=== PATIENT | female | born 1995 | race Caucasian/White ===

== ENCOUNTER 2016-11-11 20:30 | Inpatient (IN) | payer OTHER, MEDICAID ==
[2016-11-11 20:45] LABS: Hematocrit 41 % (35-47); Hemoglobin 13.7 g/dl (12.0-16.0); Mean Corpuscular HGB Conc 33 g/dl (31-36); Mean Corpuscular Hemoglobin 27 pg (27-31); Mean Corpuscular Volume 81 fL (80-97); Mean Platelet Volume 8 um3 (7.4-10.4); Red Blood Count 5.07 10^6/ul (4.0-5.4); Red Cell Distribution Width 13 % (10.5-15); White Blood Count 13.2 10^3/ul (3.5-10.8)
[2016-11-11 21:00] LABS: Urine Bacteria 2+ (Absent); Urine Bilirubin Negative (Negative); Urine Glucose Negative (Negative); Urine Nitrite Positive (Negative)
[2016-11-11 21:01] LABS: ALT 14 U/L (7-52); AST 15 U/L (13-39); Albumin 4.1 g/dL (3.2-5.2); Alkaline Phosphatase 52 U/L (34-104); Anion Gap 8 mmol/L (2-11); BUN/Creatinine Ratio 8.1 (8-20); Blood Urea Nitrogen 8 mg/dL (6-24); CO2 Carbon Dioxide 25 mmol/L (22-32); Calcium 9.6 mg/dL (8.6-10.3); Chloride 103 mmol/L (101-111); EGFR African American 90.2 (>60); EGFR Non-African American 70.1 (>60); Globulin 2.9 g/dL (2-4); Glucose 124 mg/dL (70-100); Potassium 3.9 mmol/L (3.5-5.0); Sodium 136 mmol/L (133-145)
[2016-11-11 21:09] LABS: Benzodiazepine Urine Screen None Detected (None Detect)
--- NOTE | 2016-11-11 21:12 | ED ---
Jayna Castrejon SooYoung, scribed for Abram Haider MD on 11/11/16 at 2055 . Altered Mental Status - HPI Summary HPI Summary: LEVEL 5 CAVEAT: HPI LIMITED DUE TO PT CONDITION, UNCOOPERATIVE A 21 y/o F presents to ED. Pt repeatedly stating, "I want my employee benefits attorney present." Pt was seen in [facility] ED on 11/09/2016 for MHE and was seen by Dr. Haider. Previously seen for MHE in 03/2016. - History Of Current Complaint Stated Complaint: 941 Time Seen by Provider: 11/11/16 20:32 Hx Obtained From: Patient, Other: - IPD - Allergies/Home Medications Allergies/Adverse Reactions: Allergies Allergy/AdvReac Type Severity Reaction Status Date / Time No Known Allergies Allergy Verified 02/13/16 11:48 PMH/Surg Hx/FS Hx/Imm Hx Previously Healthy: No Musculoskeletal History: Reports: Other Musculoskeletal History - L ACL tear Sensory History: Reports: Hx Contacts or Glasses Opthamlomology History: Reports: Hx Contacts or Glasses Psychiatric History: Reports: Hx of Violent Episodes Against Others Denies: Hx Anxiety, Hx Attention Deficit Hyperactivity Disorder, Hx Eating Disorder, Hx Depression, Hx Panic Disorder, Hx Post Traumatic Stress Disorder, Hx Inpatient Treatment, Hx Community Mental Health Tx, Hx Schizophrenia, Hx Bipolar Disorder, Hx Suicide Attempt, Hx Substance Abuse, Other Psychiatric Issues/Disorders - Surgical History Surgery Procedure, Year, and Place: Left knee ALC surgery 2013 Hx Anesthesia Reactions: No Infectious Disease History: Denies: Hx Clostridium Difficile, Hx Hepatitis, Hx Human Immunodeficiency Virus (HIV), Hx of Known/Suspected MRSA, Hx Shingles, Hx Tuberculosis, Hx Known/ Suspected VRE, Hx Known/Suspected VRSA, History Other Infectious Disease - Family History Known Family History: Positive: Other - alcohol abuse Family History: EtOH abuse, father - Social History Occupation: Student Lives: With Family Alcohol Use: Rare Hx Substance Use: No Substance Use Type: Reports: None Hx Tobacco Use: No Smoking Status (MU): Never Smoked Tobacco Review of Systems - ROS Summary Review of Systems Summary: LEVEL 5 CAVEAT: ROS LIMITED DUE TO PT CONDITION, UNCOOPERATIVE All Other Systems Reviewed And Are Negative: No Physical Exam Triage Information Reviewed: Yes Vital Signs On Initial Exam: Initial Vitals Temp Pulse Resp BP Pulse Ox 97.7 F 57 20 120/88 98 11/11/16 20:35 11/11/16 20:35 11/11/16 20:35 11/11/16 20:35 11/11/16 20:35 Vital Signs Reviewed: Yes Appearance: Positive: Well-Appearing - anxious Skin: Positive: Warm Eyes: Positive: KRISTIE ENT: Positive: Hearing grossly normal Respiratory/Lung Sounds: Positive: Breath Sounds Present Cardiovascular: Positive: Normal Abdomen Description: Positive: Nontender, Soft Musculoskeletal: Positive: Strength/ROM Intact Neurological: Positive: Alert, Oriented to Person Place, Time Diagnostics - Vital Signs Vital Signs Temp Pulse Resp BP Pulse Ox 11/11/16 20:35 97.7 F 57 20 120/88 98 - Laboratory Lab Results: Lab Results 11/11/16 11/11/16 11/11/16 Range/Units 20:39 20:39 20:47 WBC 13.2 H (3.5-10.8) 10^3/ul RBC 5.07 (4.0-5.4) 10^6/ul Hgb 13.7 (12.0-16.0) g/dl Hct 41 (35-47) % MCV 81 (80-97) fL MCH 27 (27-31) pg MCHC 33 (31-36) g/dl RDW 13 (10.5-15) % Plt Count 354 (150-450) 10^3/ul MPV 8 (7.4-10.4) um3 Neut % (Auto) 67.2 (38-83) % Lymph % (Auto) 25.1 (25-47) % Pickett % (Auto) 6.3 (1-9) % Eos % (Auto) 0.8 (0-6) % Baso % (Auto) 0.6 (0-2) % Absolute Neuts (auto) 8.9 H (1.5-7.7) 10^3/ul Absolute Lymphs (auto) 3.3 (1.0-4.8) 10^3/ul Absolute Monos (auto) 0.8 (0-0.8) 10^3/ul Absolute Eos (auto) 0.1 (0-0.6) 10^3/ul Absolute Basos (auto) 0.1 (0-0.2) 10^3/ul Absolute Nucleated RBC 0 10^3/ul Nucleated RBC % 0 Sodium 136 (133-145) mmol/L Potassium 3.9 (3.5-5.0) mmol/L Chloride 103 (101-111) mmol/L Carbon Dioxide 25 (22-32) mmol/L Anion Gap 8 (2-11) mmol/L BUN 8 (6-24) mg/dL Creatinine 0.99 H (0.51-0.95) mg/dL Est GFR ( Amer) 90.2 (>60) Est GFR (Non-Af Amer) 70.1 (>60) BUN/Creatinine Ratio 8.1 (8-20) Glucose 124 H (70-100) mg/dL Calcium 9.6 (8.6-10.3) mg/dL Total Bilirubin 0.60 (0.2-1.0) mg/dL AST 15 (13-39) U/L ALT 14 (7-52) U/L Alkaline Phosphatase 52 (34-104) U/L Total Protein 7.0 (6.4-8.9) g/dL Albumin 4.1 (3.2-5.2) g/dL Globulin 2.9 (2-4) g/dL Albumin/Globulin Ratio 1.4 (1-3) TSH Pending Urine Color Yellow Urine Appearance Cloudy Urine pH 6.0 (5-9) Ur Specific Gulliver 1.014 (1.010-1.030) Urine Protein Negative (Negative) Urine Ketones Negative (Negative) Urine Blood Negative (Negative) Urine Nitrate Positive H (Negative) Urine Bilirubin Negative (Negative) Urine Urobilinogen Negative (Negative) Ur Leukocyte Esterase 2+ H (Negative) Urine WBC (Auto) 3+(>20/hpf) H (Absent) Urine RBC (Auto) 1+(3-5/hpf) H (Absent) Ur Squamous Epith Cells Present H (Absent) Urine Bacteria 2+ H (Absent) Urine Glucose Negative (Negative) Salicylates Pending Urine Opiates Screen (None Detect) Acetaminophen Pending Ur Barbiturates Screen (None Detect) Ur Phencyclidine Scrn (None Detect) Ur Amphetamines Screen (None Detect) U Benzodiazepines Scrn (None Detect) Urine Cocaine Screen (None Detect) U Cannabinoids Screen (None Detect) Serum Alcohol Pending 11/11/16 Range/Units 20:47 WBC (3.5-10.8) 10^3/ul RBC (4.0-5.4) 10^6/ul Hgb (12.0-16.0) g/dl Hct (35-47) % MCV (80-97) fL MCH (27-31) pg MCHC (31-36) g/dl RDW (10.5-15) % Plt Count (150-450) 10^3/ul MPV (7.4-10.4) um3 Neut % (Auto) (38-83) % Lymph % (Auto) (25-47) % Pickett % (Auto) (1-9) % Eos % (Auto) (0-6) % Baso % (Auto) (0-2) % Absolute Neuts (auto) (1.5-7.7) 10^3/ul Absolute Lymphs (auto) (1.0-4.8) 10^3/ul Absolute Monos (auto) (0-0.8) 10^3/ul Absolute Eos (auto) (0-0.6) 10^3/ul Absolute Basos (auto) (0-0.2) 10^3/ul Absolute Nucleated RBC 10^3/ul Nucleated RBC % Sodium (133-145) mmol/L Potassium (3.5-5.0) mmol/L Chloride (101-111) mmol/L Carbon Dioxide (22-32) mmol/L Anion Gap (2-11) mmol/L BUN (6-24) mg/dL Creatinine (0.51-0.95) mg/dL Est GFR ( Amer) (>60) Est GFR (Non-Af Amer) (>60) BUN/Creatinine Ratio (8-20) Glucose (70-100) mg/dL Calcium (8.6-10.3) mg/dL Total Bilirubin (0.2-1.0) mg/dL AST (13-39) U/L ALT (7-52) U/L Alkaline Phosphatase (34-104) U/L Total Protein (6.4-8.9) g/dL Albumin (3.2-5.2) g/dL Globulin (2-4) g/dL Albumin/Globulin Ratio (1-3) TSH Urine Color Urine Appearance Urine pH (5-9) Ur Specific Gulliver (1.010-1.030) Urine Protein (Negative) Urine Ketones (Negative) Urine Blood (Negative) Urine Nitrate (Negative) Urine Bilirubin (Negative) Urine Urobilinogen (Negative) Ur Leukocyte Esterase (Negative) Urine WBC (Auto) (Absent) Urine RBC (Auto) (Absent) Ur Squamous Epith Cells (Absent) Urine Bacteria (Absent) Urine Glucose (Negative) Salicylates Urine Opiates Screen None detected (None Detect) Acetaminophen Ur Barbiturates Screen None detected (None Detect) Ur Phencyclidine Scrn None detected (None Detect) Ur Amphetamines Screen None detected (None Detect) U Benzodiazepines Scrn None detected (None Detect) Urine Cocaine Screen None detected (None Detect) U Cannabinoids Screen None detected (None Detect) Serum Alcohol Result Diagrams: 11/11/16 20:39 11/11/16 20:39 Lab Statement: Any lab studies that have been ordered have been reviewed, and results considered in the medical decision making process. Altered Mental Statu Course/Dx - Course Assessment/Plan: Pt is medically clear for MHE at 2044. - Diagnoses Discharge Diagnoses: Paranoia (psychosis) - Provider Notifications Instructed by Provider To: Admit As Inpatient Discharge - Discharge Plan Condition: Fair Disposition: ADMITTED TO [facility] The documentation as recorded by the Jayna esteban SooYoung accurately reflects the service I personally performed and the decisions made by , Abram Haider MD.
[2016-11-11 21:37] LABS: Acetaminophen < 15 mcg/mL; Alcohol < 10 mg/dL (<10); Salicylate < 2.50 mg/dL (<30)
[2016-11-11 21:48] LABS: TSH (Thyroid Stimulating Horm) 2.81 mcIU/mL (0.34-5.60)
[2016-11-11] MEDS ORDERED: LORazepam TAB(*) 1 MG PO ONE (21:56)
--- NOTE | 2016-11-12 09:40 | HP ---
DATE OF ADMISSION: 11/11/16 IDENTIFYING DATA: Neha Meier is a 21-year-old female with a history of psychiatric hospitalization, possible alcohol use disorder. She is admitted to the Psychiatric Unit after being brought to the hospital twice in two days by law enforcement and being evaluated with apparent paranoid delusions. HISTORY OF PRESENT ILLNESS: My information sources are interview with Neha and review of her Emergency Room evaluations of this week, along with phone and in person conversations with her father, Karlos Meier. Neha was admitted to our psychiatric unit after presenting to the hospital ER multiple times with alcohol intoxication. At that time, she had been running in traffic, intoxicated. Her father reports that over the over the course of the last month, she's obviously had paranoid delusions. She had a minor misdemeanor infraction of some kind and has developed the idea that she has felony charges against her, that the [place] Police have been having her under illegal surveillance by tapping her phone and home lines and putting cameras in her apartment. Her father said that, initially, they sort of wanted to believe her story, but it became quite clear that she was psychotic. She's apparently not sleeping much. Neha was very resistant to giving me any information other than perseverating on the "truth" of her persecution by police. She states she has a casino gaming worker who is defending her and also planning to dandre the police. She describes a persecutory pattern of behaviors by the police, and pattern of distant surveillance. She denies auditory hallucinations. She refused to disclose whether she was having mood symptoms or anxiety. She denied new health problems, and denied drug use or current alcohol use. She perseverated on being released from the hospital, and kept coming back to that, insisting that we were detaining her inappropriately. Neha said her father would immediately support her release from the hospital; however, in conversation with him, he said he is delighted that she is admitted and absolutely certain she needs psychiatric care. I provided him with information on the process here, treatment plan, expectations, diagnostic considerations, and possible complications. PRIOR PSYCHIATRIC HISTORY: As noted above, one psychiatric hospitalization after repeated episodes of intoxicated behavior. Previously, she denied any history of suicidal behavior or self-harm. She reported making her developmental milestones on time, and denied adolescent behavioral problems or learning difficulties. She denied a history of an eating disorder. Prior to the current episode, she denied any history of mood symptoms meeting criteria for major mood episode, manic or depressed, and had denied a history of prior psychotic symptoms. Her father confirmed this as she has not had medication interventions. MEDICAL HISTORY: No chronic illnesses. ALLERGIES: No known drug allergies. OUTPATIENT MEDICATIONS: None. ABUSE AND TRAUMA HISTORY: Denies. SUBSTANCE USE HISTORY: Previously reported using alcohol in a similar fashion to her peers. Had multiple ER visits pursuant to intoxication in 2016. She's denied heavy daily use or history of withdrawal. She denied the use of other illicit substances. FAMILY PSYCHIATRIC HISTORY: Father specifically denied any history of schizophrenia or bipolar disorder. She has reported that her dad had some alcohol problems and paternal grandmother as well. Denied other illnesses or suicides in the family. Her dad says she has sociopathic traits, and pattern of superficial relationships and risky behavior. ABUSE AND TRAUMA HISTORY: Denied. SOCIAL HISTORY: From [place]. Parents are alive and well, and has one sibling. Previously reported a decent upbringing with good relations. She denied a confucianism affiliation. She was educated through her herb year at [employer], and was interested in working in the government after graduation. She has currently withdrawn from the school. She reports having friends. She has recently resided in [place], but came to [place] temporarily. She identified as heterosexual, and reported sexually active with males in a manner that she had found satisfactory. She has dated in the past. MENTAL STATUS EXAMINATION: Somewhat disheveled, early-20s female who is healthy appearing, wearing hospital scrub clothing. She has increased psychomotor activity. She is intensely related, hostile at times, manipulative , and guarded. Maintains intense eye contact. Speech is pressured with short latencies and copious quantity. Mood is described as "angry." Affect is expansive, and consistent with euthymia. Thought process is over-inclusive and perseverative. Though content significant for paranoid guilty delusions. Negative for suicidal or homicidal ideation. Sensorium is clear. She is alert and oriented x3. Insight and judgement is impaired, and impulse control is impaired. PHYSICAL ASSESSMENT: Vital signs - temperature 97.7, blood pressure is 120/88, pulse 57, respiratory rate of 20. ADMISSION LABORATORY STUDIES: CBC had a white blood count of 13.2, and 8.9 absolute neutrophils. Chemistry panel had creatinine of 0.99, glucose of 124. Urinalysis had positive nitrate, 2+ leukocyte esterase, 3+ white blood cells, 1 + red blood cells, positive squamous epithelial cells. Toxicology screen was negative for Tylenol, alcohol or salicylates. Urine drug screen was negative. REVIEW OF SYSTEMS: Negative for neurological symptoms, respiratory difficulties , chest pain, syncope, gastrointestinal distress,elimination symptoms of any kind, musculoskeletal problems or skin problems. PHYSICAL EXAMINATION: Deferred. Neha refused the examination citing her own preference. This can appropriately be followed up later, but is not essential. She's a healthy person and has been medically cleared for psychiatric hospitalization. CLINICAL SUMMARY: Second psychiatric hospitalization for a 21-year-old female with a history of behavioral disturbance with alcohol problems, and now a clear history of one month of psychosis with extensive delusions. She also has intense behavioral activation, expansive affect, perseverative thought process, and reduced sleep which suggest a bipolar manic (irritable) or mixed episode. She requires emergency psychiatric hospitalization for immediate safety and due to her level of impairment. ADMISSION DIAGNOSES: Consider bipolar mixed or manic episode with psychotic features. TREATMENT PLAN: Admit to the psychiatric unit. Code status is full, safety checks are every 15-minute intervals. Initiate comprehensive group, milieu and individual psychotherapeutic support. Medication management will involve treatment for manic spectrum symptoms and psychosis. Estimated length of stay is 7-10 days. Medication management starts presumptive nancy treatment with Pickwick and Seroquel, with Thorazine for emergencies of agitation. Patient's strengths are her good intellectual functioning, intact basic health and supportive family. Discharge planning will involve coordination of appropriate aftercare. Further evaluation may include MRI, EEG and psychological testing. [id number]/[facility] #: [id number] ISAIAH
[2016-11-12] MEDS: Lithium Carbonate TAB* 300 MG PO SCH ×2 (13:16→21:41)
[2016-11-12] MEDS: QUEtiapine TAB* 100 MG PO SCH (21:41)
[2016-11-13] MEDS: Lithium Carbonate TAB* 300 MG PO SCH ×2 (09:48→19:59)
[2016-11-13] MEDS: QUEtiapine TAB* 100 MG PO SCH (19:59)
[2016-11-14] MEDS: Lithium Carbonate TAB* 300 MG PO SCH ×2 (10:20→20:47)
--- NOTE | 2016-11-14 19:52 | PN ---
Subjective - Subjective Service Type: 05811 Hosp care 15 min low complexity Subjective: Lidia approached me several times today to speak with me privately. Say she is not happy with her psychiatrist because he doesn't believe he story and wouldn' t contact her lawer and few other issues such as whatever has happened with the police and the conversation goes on and on. Objective - Appearance Appearance: Healthy Appearing Dysmorphic Features: No Hygiene: Normal Grooming: Fairly Well Kept - Behavior Psychomotor Activities: Normal Exhibits Abnormal Movement: No - Attitude and Relatedness Attitude and Relatedness: Needy Eye Contact: Good - Speech Quality: Pressured Latencies: Short Quantity: Terse - Mood Patient's Decription of Mood: "Terrible" - Affect Observed Affect: Tense Affect Consistent with: Dysphoria - Thought Process Patient's Thought Process: Coherent, Circumstantial, Over Inclusive Thought Content: No Passive Wish, No Suicidal Planning, No Homicidal Ideation, No Paranoid Ideation - Sensorium Experiencing Hallucinations: No, Sensorium is Clear Type of Hallucinations: Visual: No, Auditory: No, Command: No - Level of Consciousness Level of Consciousness: Alert Orientation: Yes Intact, Yes Orientated to Time, Yes Orientated to Place, Yes Orientated to Person - Impulse Control Impulse Control: Intact - Insight and Judgement Insight and Judgement: Poor - Group Participation Particating in Group Activities: No - Medication Management Medication Management Adherence: Yes Assessment - Assessment Merits Inpatient Hospitalization: For Immediate Safety, For Ongoing Evaluation, Pending Safe DC Plan Plan - Plan Treatment Plan: Name: LIDIA GARCIA Birthdate: 1995 [id number] Continued Medication Management: Continue Outpt Medication Medications: Current Medications Chlorpromazine HCl (Thorazine Tab*) 100 mg PO Q2H PRN PRN Reason: AGITATION Rives Carbonate (Rives Carbonate Tab*) 300 mg PO BID [facility] Last Admin: 11/14/16 10:20 Dose: Not Given Quetiapine Fumarate (Seroquel Tab*) 100 mg PO BEDTIME [facility] Last Admin: 11/13/16 19:59 Dose: Not Given - Discharge Plan Discharge Plan: Outpatient Follow Up Outpatient Program: [facility]
[2016-11-14] MEDS: QUEtiapine TAB* 100 MG PO SCH (20:47)
[2016-11-15] MEDS: Lithium Carbonate TAB* 300 MG PO SCH ×2 (09:32→21:09)
--- NOTE | 2016-11-15 14:25 | PN ---
Subjective - Subjective Service Type: 48551 Hosp care 15 min low complexity Subjective: Lidia's mental status has worsened and she is very labile, intrussive, demanding and defient. Refuses to take meds as she doesn't believe she has patricia psychosis. The diagnosis was wrong in her openion. Someone should call her Lawer to verify her claim. Very pressured and tangential. Objective - Appearance Appearance: Healthy Appearing Dysmorphic Features: No Hygiene: Normal Grooming: Well Kept - Behavior Psychomotor Activities: Normal Exhibits Abnormal Movement: No - Attitude and Relatedness Attitude and Relatedness: Needy Eye Contact: Fair - Speech Quality: Pressured Latencies: Short Quantity: Copious - Mood Patient's Decription of Mood: "Terrible" - Affect Observed Affect: Labile Affect Consistent with: Dysphoria - Thought Process Patient's Thought Process: Coherent, Disorganized, Loose Associations, Tangential, Over Inclusive Thought Content: No Passive Wish, No Suicidal Planning, No Homicidal Ideation, No Paranoid Ideation - Sensorium Experiencing Hallucinations: No, Sensorium is Clear Type of Hallucinations: Visual: No, Auditory: No, Command: No - Level of Consciousness Level of Consciousness: Alert Orientation: Yes Intact, Yes Orientated to Time, Yes Orientated to Place, Yes Orientated to Person - Impulse Control Impulse Control: Tenuous - Insight and Judgement Insight and Judgement: Impaired - Group Participation Particating in Group Activities: No - Medication Management Medication Management Adherence: No Assessment - Assessment Merits Inpatient Hospitalization: For Immediate Safety, For Stabilization, To Initiate Treatment, Pending Safe DC Plan Plan - Plan Treatment Plan: Name: LIDIA GARCIA Birthdate: 1995 [id number] Continued Medication Management: Start Medication - May need TOO Medications: Current Medications Chlorpromazine HCl (Thorazine Tab*) 100 mg PO Q2H PRN PRN Reason: AGITATION Staves Carbonate (Staves Carbonate Tab*) 300 mg PO BID [facility] Last Admin: 11/15/16 09:32 Dose: Not Given Quetiapine Fumarate (Seroquel Tab*) 100 mg PO BEDTIME [facility] Last Admin: 11/14/16 20:47 Dose: Not Given - Discharge Plan Discharge Plan: Consider Longer Term Tx
[2016-11-15] MEDS: QUEtiapine TAB* 100 MG PO SCH (21:09)
[2016-11-16] MEDS: Lithium Carbonate TAB* 300 MG PO SCH ×2 (09:13→21:21)
--- NOTE | 2016-11-16 11:44 | PN ---
Subjective - Subjective Service Type: 40112 Hosp care 25 min moderate complexity Subjective: Today is my first interaction with the patient and she makes several intrusive attempts to speak with me as I am working with other patients on the unit. She is tearful and labile, perseverating "You need to watch the tape!" Apparently this is in reference to a delusion she's developed that two members of the treatment team staff here at [facility] conspired to falsify her documents to make her appear "crazy" in order to keep her hospitalized against her will. She continues also to assert that the [place] police department is surveilling her from the house next door to a residence where she is temporarily staying here in [place]. The patient is demanding to be discharged immediately and displays no insight into her condition during our interaction. She threatens to dandre me and the hospital several times and states her intention to continue refusing neuroleptic and mood stabilizing medications. Objective - Appearance Appearance: Well Developed/Nourished Dysmorphic Features: No Hygiene: Normal Grooming: Well Kept - Behavior Psychomotor Activities: Abnormal-Increased Exhibits Abnormal Movement: No - Attitude and Relatedness Attitude and Relatedness: Psychotically Related Eye Contact: Good - Speech Quality: Pressured Latencies: Short Quantity: Copious - Mood Patient's Decription of Mood: "Terrible" - Affect Observed Affect: Labile Affect Consistent with: Dysphoria - Thought Process Patient's Thought Process: Tangential Thought Content: Yes Paranoid Ideation, No Passive Wish, No Suicidal Planning, No Homicidal Ideation - Sensorium Experiencing Hallucinations: No, Sensorium is Clear Type of Hallucinations: Visual: No, Auditory: No, Command: No - Level of Consciousness Level of Consciousness: Agitated Orientation: Yes Intact, Yes Orientated to Time, Yes Orientated to Place, Yes Orientated to Person - Impulse Control Impulse Control: Poor - Insight and Judgement Insight and Judgement: Impaired - Group Participation Particating in Group Activities: No - Medication Management Medication Management Adherence: No Assessment - Assessment Merits Inpatient Hospitalization: For Immediate Safety, For Stabilization Inpatient DSM-IV Dx: Bipolar I, MRE mixed, severe with psychotic features Clinical Impression: 21 y.o. single, white female with a history of mood instability, alcohol abuse and possible sociopathy admitted on a 9.41 status due to paranoid agitation and persecutory delusions directed at the local police department. Plan - Plan Treatment Plan: Name: LIDIA GARCIA Birthdate: 1995 [id number] Patient is being offered lithium and quetiapine but is non-adherent with these. She is clearly manic and agitated. Will pursue T.O.O. in order to initiate medications. Continued Medication Management: Start Medication Medications: Current Medications Chlorpromazine HCl (Thorazine Tab*) 100 mg PO Q2H PRN PRN Reason: AGITATION Jersey Carbonate (Jersey Carbonate Tab*) 300 mg PO BID [facility] Last Admin: 11/16/16 09:13 Dose: Not Given Quetiapine Fumarate (Seroquel Tab*) 100 mg PO BEDTIME [facility] Last Admin: 11/15/16 21:09 Dose: Not Given - Discharge Plan Discharge Plan: Inpatient Hospitalization
[2016-11-16] MEDS ORDERED: chlorproMAZINE INJ* 25 MG/ML 2 ML (50 MG) ONE (14:39)
[2016-11-16] MEDS: chlorproMAZINE TAB* 100 MG PO PRN (14:45)
[2016-11-16] MEDS ORDERED: LORazepam INJ* 2 MG/ML 1 ML VIAL ONE (14:56)
[2016-11-16] MEDS: QUEtiapine TAB* 100 MG PO SCH (21:21)
[2016-11-17] MEDS: Lithium Carbonate TAB* 300 MG PO SCH ×3 (08:54→19:24)
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
[2016-11-17] MEDS: QUEtiapine TAB* 100 MG PO SCH ×2 (18:11→19:24)
[2016-11-17] MEDS: chlorproMAZINE TAB* 100 MG PO PRN (18:11)
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
[2016-11-18] MEDS: Lithium Carbonate TAB* 300 MG PO SCH ×2 (09:29→20:06)
[2016-11-18] MEDS: QUEtiapine TAB* 100 MG PO SCH (20:06)
[2016-11-19] MEDS: Lithium Carbonate TAB* 300 MG PO SCH ×4 (09:05→22:16)
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
[2016-11-19] MEDS ORDERED: chlorproMAZINE INJ* 25 MG/ML 2 ML (50 MG) ONE (15:09)
[2016-11-19] MEDS: chlorproMAZINE TAB* 100 MG PO PRN (15:21)
[2016-11-19] MEDS: QUEtiapine TAB* 100 MG PO SCH (22:16)
[2016-11-20] MEDS: Lithium Carbonate TAB* 300 MG PO SCH ×4 (00:35→22:30)
[2016-11-20] MEDS: QUEtiapine TAB* 100 MG PO SCH ×2 (00:35→22:30)
[2016-11-20] MEDS: chlorproMAZINE TAB* 100 MG PO PRN (12:13)
[2016-11-20] MEDS ORDERED: Ondansetron TAB* 4 MG PO PRN (13:43)
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
[2016-11-21] MEDS: Lithium Carbonate TAB* 300 MG PO SCH ×2 (09:28→20:13)
[2016-11-21] MEDS ORDERED: chlorproMAZINE INJ* 25 MG/ML 2 ML (50 MG) ONE (11:29)
[2016-11-21] MEDS ORDERED: LORazepam INJ* 2 MG/ML 1 ML VIAL IM ONE (12:46)
[2016-11-21] MEDS ORDERED: diPHENhydraMINE IV* 50 MG/ML 1 ml VIAL (BENADRYL) ONE (12:46)
[2016-11-21] MEDS ORDERED: LORazepam INJ* 2 MG/ML 1 ML VIAL ONE (12:46)
[2016-11-21] MEDS ORDERED: diPHENhydraMINE IV* 50 MG/ML 1 ml VIAL (BENADRYL) IM ONE (12:47)
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
[2016-11-21] MEDS: QUEtiapine TAB* 100 MG PO SCH (20:13)
[2016-11-22] MEDS: Lithium Carbonate TAB* 300 MG PO SCH ×2 (10:20→21:17)
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
[2016-11-22 12:33] LABS: Hematocrit 42 % (35-47); Hemoglobin 13.9 g/dl (12.0-16.0); Mean Corpuscular HGB Conc 33 g/dl (31-36); Mean Corpuscular Hemoglobin 28 pg (27-31); Mean Corpuscular Volume 84 fL (80-97); Mean Platelet Volume 9 um3 (7.4-10.4); Red Blood Count 5.04 10^6/ul (4.0-5.4); Red Cell Distribution Width 13 % (10.5-15); White Blood Count 14.1 10^3/ul (3.5-10.8)
[2016-11-22 12:45] LABS: Albumin 4.2 g/dL (3.2-5.2); BUN/Creatinine Ratio 12.8 (8-20); Calcium 9.6 mg/dL (8.6-10.3); EGFR African American 118.8 (>60); EGFR Non-African American 92.4 (>60); Globulin 3.3 g/dL (2-4); Potassium 3.8 mmol/L (3.5-5.0); Total Bilirubin 1.1 mg/dL (0.2-1.0); Total Protein 7.5 g/dL (6.4-8.9)
[2016-11-22 13:27] LABS: TSH (Thyroid Stimulating Horm) 2.58 mcIU/mL (0.34-5.60)
[2016-11-22] MEDS ORDERED: chlorproMAZINE INJ* 25 MG/ML 2 ML (50 MG) ONE (14:38)
[2016-11-22] MEDS: chlorproMAZINE TAB* 100 MG PO PRN (14:40)
--- NOTE | 2016-11-22 15:40 | RAD ---
Indication: Dyspnea, history of anxiety. Comparison: None. Technique: Upright AP 1530 hours Report: Clear lungs and pleural spaces. Negative for pneumothorax. The heart, pulmonary vasculature, and mediastinal contours are unremarkable. Unremarkable osseous structures and soft tissue contours accounting for large body habitus. IMPRESSION: No evidence for acute intrathoracic disease.
[2016-11-22] MEDS: Ciprofloxacin TAB* 500 MG PO SCH (21:17)
[2016-11-22] MEDS: QUEtiapine TAB* 100 MG PO SCH (21:17)
[2016-11-23] MEDS: chlorproMAZINE TAB* 100 MG PO PRN ×2 (00:12→15:23)
[2016-11-23] MEDS: Ciprofloxacin TAB* 500 MG PO SCH ×2 (00:13→10:21)
[2016-11-23] MEDS: Lithium Carbonate TAB* 300 MG PO SCH ×3 (00:13→20:53)
[2016-11-23] MEDS: QUEtiapine TAB* 100 MG PO SCH ×2 (00:13→20:53)
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
[2016-11-23] MEDS: Cephalexin CAP* 500 MG PO SCH (20:53)
[2016-11-24] MEDS: Lithium Carbonate TAB* 300 MG PO SCH ×3 (10:31→19:04)
[2016-11-24] MEDS: Cephalexin CAP* 500 MG PO SCH ×2 (10:31→19:04)
--- NOTE | 2016-11-24 10:39 | PN ---
Subjective - Subjective Service Type: 94445 Hosp care 15 min low complexity Subjective: The patient is paranoid and agitated. Her phone privileges have been restricted since she is making numerous delusional phone calls to local law enforcement and to various attornies she finds in the phone book. Yesterday afternoon, when I attempted to meet with her to discuss the embedded processor's decision to naila the hospital T.O.O., she was on the phone with an prosecuting attorney and stated to the person on the other end "My doctor is here in front of me. He has a gun and he's going to shoot me!" This morning she claims to have overheard staff discussing ways of harming her. Objective - Appearance Appearance: Well Developed/Nourished Dysmorphic Features: No Hygiene: Dirty Grooming: Disheveled - Behavior Psychomotor Activities: Abnormal-Increased Exhibits Abnormal Movement: No - Attitude and Relatedness Attitude and Relatedness: Hostile Eye Contact: Good - Speech Quality: Pressured Latencies: Short Quantity: Copious - Mood Patient's Decription of Mood: "Terrible" - Affect Observed Affect: Labile Affect Consistent with: Dysphoria - Thought Process Patient's Thought Process: Tangential Thought Content: Yes Homicidal Ideation, Yes Paranoid Ideation, No Passive Wish, No Suicidal Planning - Sensorium Experiencing Hallucinations: No, Sensorium is Clear Type of Hallucinations: Visual: No, Auditory: No, Command: No - Level of Consciousness Level of Consciousness: Agitated Orientation: Yes Intact, Yes Orientated to Time, Yes Orientated to Place, Yes Orientated to Person - Impulse Control Impulse Control: Poor - Insight and Judgement Insight and Judgement: Impaired - Group Participation Particating in Group Activities: No - Medication Management Medication Management Adherence: No Assessment - Assessment Merits Inpatient Hospitalization: For Immediate Safety, For Stabilization Inpatient DSM-IV Dx: Bipolar I, MRE mixed, severe with psychotic features Clinical Impression: 21 y.o. single, white female with a history of mood instability, alcohol abuse and possible sociopathy admitted on a 9.41 status due to paranoid agitation and persecutory delusions directed at the local police department. Plan - Plan Treatment Plan: Name: LIDIA GARCIA Birthdate: 1995 [id number] The patient has been issued an order for treatment over her objection by [employer], however, the hospital has not yet received the formal documentation that would allow us to force-medicate her. She continues to be clearly manic and agitated. Once we received the required court paperwork we will continue to offer lithium and quetiapine, however, she will receive chlorpromazine IM if she refuses. Continued Medication Management: Start Medication Medications: Current Medications Cephalexin HCl (Keflex Cap*) 500 mg PO BID [facility] Last Admin: 11/23/16 20:53 Dose: Not Given Chlorpromazine HCl (Thorazine Tab*) 100 mg PO Q2H PRN PRN Reason: AGITATION Last Admin: 11/23/16 15:23 Dose: 100 mg [place] Carbonate ([place] Carbonate Tab*) 300 mg PO BID [facility] Last Admin: 11/23/16 20:53 Dose: Not Given Ondansetron HCl (Zofran Tab*) 4 mg PO Q8H PRN PRN Reason: NAUSEA Quetiapine Fumarate (Seroquel Tab*) 100 mg PO BEDTIME [facility] Last Admin: 11/23/16 20:53 Dose: Not Given - Discharge Plan Discharge Plan: Inpatient Hospitalization
[2016-11-24] MEDS ORDERED: chlorproMAZINE INJ* 25 MG/ML 2 ML (50 MG) IM PRN (14:38)
[2016-11-24] MEDS: QUEtiapine TAB* 100 MG PO SCH ×2 (15:45→19:04)
[2016-11-25] MEDS: Lithium Carbonate TAB* 300 MG PO SCH ×2 (08:23→20:31)
[2016-11-25] MEDS: Cephalexin CAP* 500 MG PO SCH ×2 (08:25→20:31)
--- NOTE | 2016-11-25 14:38 | PN ---
Subjective - Subjective Service Type: 10222 Hosp care 15 min low complexity Subjective: Patient is in distress. "Dr. Murdock, I have lung cancer. I'm going to . Please let me go to the ER." The patient continues to be delusional with no insight although she's taken the last two doses of medication in accordance with the parks recreation coordinator's order. Objective - Appearance Appearance: Well Developed/Nourished Dysmorphic Features: No Hygiene: Dirty Grooming: Disheveled - Behavior Psychomotor Activities: Abnormal-Increased Exhibits Abnormal Movement: No - Attitude and Relatedness Attitude and Relatedness: Psychotically Related Eye Contact: Good - Speech Quality: Pressured Latencies: Short Quantity: Copious - Mood Patient's Decription of Mood: "Terrible" - Affect Observed Affect: Labile Affect Consistent with: Dysphoria - Thought Process Patient's Thought Process: Tangential Thought Content: Yes Paranoid Ideation, No Passive Wish, No Suicidal Planning, No Homicidal Ideation - Sensorium Experiencing Hallucinations: No, Sensorium is Clear Type of Hallucinations: Visual: No, Auditory: No, Command: No - Level of Consciousness Level of Consciousness: Agitated Orientation: Yes Intact, Yes Orientated to Time, Yes Orientated to Place, Yes Orientated to Person - Impulse Control Impulse Control: Poor - Insight and Judgement Insight and Judgement: Impaired - Group Participation Particating in Group Activities: No - Medication Management Medication Management Adherence: Yes Assessment - Assessment Merits Inpatient Hospitalization: For Immediate Safety, For Stabilization Inpatient DSM-IV Dx: Bipolar I, MRE mixed, severe with psychotic features Clinical Impression: 21 y.o. single, white female with a history of mood instability, alcohol abuse and possible sociopathy admitted on a 9.41 status due to paranoid agitation and persecutory delusions directed at the local police department. Plan - Plan Treatment Plan: Name: LIDIA GARCIA Birthdate: 1995 [id number] Pt. now on court-ordered treatment. Will monitor for signs of medication tolerability/efficacy. Continued Medication Management: Start Medication Medications: Current Medications Cephalexin HCl (Keflex Cap*) 500 mg PO BID [facility] Last Admin: 11/25/16 08:25 Dose: Not Given Chlorpromazine HCl (Thorazine Tab*) 100 mg PO Q2H PRN PRN Reason: AGITATION Last Admin: 11/23/16 15:23 Dose: 100 mg Chlorpromazine HCl (Thorazine Inj*) 100 mg IM BID PRN PRN Reason: AGITATION [place] Carbonate ([place] Carbonate Tab*) 300 mg PO BID [facility] Last Admin: 11/25/16 08:23 Dose: 300 mg Ondansetron HCl (Zofran Tab*) 4 mg PO Q8H PRN PRN Reason: NAUSEA Quetiapine Fumarate (Seroquel Tab*) 100 mg PO BEDTIME [facility] Last Admin: 11/24/16 19:04 Dose: Not Given - Discharge Plan Discharge Plan: Inpatient Hospitalization
[2016-11-25] MEDS: QUEtiapine TAB* 100 MG PO SCH ×2 (20:31→22:00)
[2016-11-26] MEDS: Cephalexin CAP* 500 MG PO SCH ×2 (09:08→21:33)
[2016-11-26] MEDS: Lithium Carbonate TAB* 300 MG PO SCH ×2 (09:08→21:31)
--- NOTE | 2016-11-26 11:43 | PN ---
Subjective - Subjective Service Type: 02381 Hosp care 15 min low complexity Subjective: Patient appears to be tolerating her medications well and has taken 4 scheduled administrations in a row, in keeping with the police judge's TOO order. She remains fixated on discharge with poor boundaries. Objective - Appearance Appearance: Well Developed/Nourished Dysmorphic Features: No Hygiene: Mal-odorous Grooming: Disheveled - Behavior Psychomotor Activities: Abnormal-Increased Exhibits Abnormal Movement: No - Attitude and Relatedness Attitude and Relatedness: Psychotically Related Eye Contact: Good - Speech Quality: Pressured Latencies: Short Quantity: Copious - Mood Patient's Decription of Mood: "Anxious" - Affect Observed Affect: Labile Affect Consistent with: Dysphoria - Thought Process Patient's Thought Process: Tangential Thought Content: Yes Paranoid Ideation, No Passive Wish, No Suicidal Planning, No Homicidal Ideation - Sensorium Experiencing Hallucinations: No, Sensorium is Clear Type of Hallucinations: Visual: No, Auditory: No, Command: No - Level of Consciousness Level of Consciousness: Agitated Orientation: Yes Intact, Yes Orientated to Time, Yes Orientated to Place, Yes Orientated to Person - Impulse Control Impulse Control: Poor - Insight and Judgement Insight and Judgement: Impaired - Group Participation Particating in Group Activities: No - Medication Management Medication Management Adherence: Yes Assessment - Assessment Merits Inpatient Hospitalization: For Immediate Safety, For Stabilization Inpatient DSM-IV Dx: Bipolar I, MRE mixed, severe with psychotic features Clinical Impression: 21 y.o. single, white female with a history of mood instability, alcohol abuse and possible sociopathy admitted on a 9.41 status due to paranoid agitation and persecutory delusions directed at the local police department. Plan - Plan Treatment Plan: Name: LIDIA GARCIA Birthdate: 1995 [id number] Pt. now on court-ordered treatment. Will monitor for signs of medication tolerability/efficacy. Check Li+ level in AM and adjust lithium dose accordingly. Continued Medication Management: Start Medication Medications: Current Medications Cephalexin HCl (Keflex Cap*) 500 mg PO BID [facility] Last Admin: 11/26/16 09:08 Dose: Not Given Chlorpromazine HCl (Thorazine Tab*) 100 mg PO Q2H PRN PRN Reason: AGITATION Last Admin: 11/23/16 15:23 Dose: 100 mg Chlorpromazine HCl (Thorazine Inj*) 100 mg IM BID PRN PRN Reason: AGITATION [place] Carbonate ([place] Carbonate Tab*) 300 mg PO BID [facility] Last Admin: 11/26/16 09:08 Dose: 300 mg Ondansetron HCl (Zofran Tab*) 4 mg PO Q8H PRN PRN Reason: NAUSEA Quetiapine Fumarate (Seroquel Tab*) 100 mg PO BEDTIME [facility] Last Admin: 11/25/16 22:00 Dose: 100 mg - Discharge Plan Discharge Plan: Inpatient Hospitalization
[2016-11-26] MEDS: QUEtiapine TAB* 100 MG PO SCH (21:32)
[2016-11-27] MEDS: Lithium Carbonate TAB* 300 MG PO SCH ×2 (09:20→20:56)
[2016-11-27] MEDS: Cephalexin CAP* 500 MG PO SCH ×2 (09:22→20:57)
[2016-11-27] MEDS: QUEtiapine TAB* 100 MG PO SCH (20:56)
[2016-11-28] MEDS: Cephalexin CAP* 500 MG PO SCH ×2 (09:48→22:44)
[2016-11-28] MEDS: Lithium Carbonate TAB* 300 MG PO SCH (09:48)
[2016-11-28] MEDS: QUEtiapine TAB* 100 MG PO SCH (23:59)
[2016-11-29] MEDS: QUEtiapine TAB* 100 MG PO SCH
[2016-11-29] MEDS: Lithium Carbonate ER* 450 MG TAB.ER PO SCH ×3 (08:53→21:50)
[2016-11-29] MEDS: Cephalexin CAP* 500 MG PO SCH ×2 (10:52→21:49)
[2016-11-29] MEDS ORDERED: chlorproMAZINE INJ* 25 MG/ML 2 ML (50 MG) IM PRN (13:05)
--- NOTE | 2016-11-29 13:12 | PN ---
Subjective - Subjective Service Type: 28581 Hosp care 15 min low complexity Subjective: The patient rushes towards me as I enter the unit, asking intensely "Am I going to be discharged today?" She insists that she is all better but remains hyperverbal with an irritable affect. Notes from over the weekend indicate that she attempted to elope through the main entrance. Her lithium level was low at 0.27 and her dose of lithium was increased to 450mg PO BID. Patient continues not to bathe. Objective - Appearance Appearance: Well Developed/Nourished Dysmorphic Features: No Hygiene: Mal-odorous Grooming: Disheveled - Behavior Psychomotor Activities: Abnormal-Increased Exhibits Abnormal Movement: No - Attitude and Relatedness Attitude and Relatedness: Irritable Eye Contact: Good - Speech Quality: Pressured Latencies: Short Quantity: Copious - Mood Patient's Decription of Mood: "Great" - Affect Observed Affect: Labile Affect Consistent with: Dysphoria - Thought Process Patient's Thought Process: Tangential Thought Content: Yes Paranoid Ideation, No Passive Wish, No Suicidal Planning, No Homicidal Ideation - Sensorium Experiencing Hallucinations: No, Sensorium is Clear Type of Hallucinations: Visual: No, Auditory: No, Command: No - Level of Consciousness Level of Consciousness: Agitated Orientation: Yes Intact, Yes Orientated to Time, Yes Orientated to Place, Yes Orientated to Person - Impulse Control Impulse Control: Poor - Insight and Judgement Insight and Judgement: Impaired - Group Participation Particating in Group Activities: No - Medication Management Medication Management Adherence: Yes Assessment - Assessment Merits Inpatient Hospitalization: For Immediate Safety, For Stabilization Inpatient DSM-IV Dx: Bipolar I, MRE mixed, severe with psychotic features Clinical Impression: 21 y.o. single, white female with a history of mood instability, alcohol abuse and possible sociopathy admitted on a 9.41 status due to paranoid agitation and persecutory delusions directed at the local police department. Plan - Plan Treatment Plan: Name: LIDIA GARCIA Birthdate: 1995 [id number] Pt. now on court-ordered treatment but remains manic and paranoid. Will d/c quetiapine and start paliperidone 6mg PO qhs in preparation for starting Invega Sustenna. Will recheck Li+ level on Tuesday (12/01). Continued Medication Management: Start Medication Medications: Current Medications Cephalexin HCl (Keflex Cap*) 500 mg PO BID [facility] Last Admin: 11/29/16 10:52 Dose: Not Given Chlorpromazine HCl (Thorazine Tab*) 100 mg PO Q2H PRN PRN Reason: AGITATION Last Admin: 11/23/16 15:23 Dose: 100 mg Chlorpromazine HCl (Thorazine Inj*) 100 mg IM BID PRN PRN Reason: AGITATION [place] Carbonate ([place] Carbonate Er Tab*) 450 mg PO BID [facility] Last Admin: 11/29/16 08:53 Dose: 450 mg Ondansetron HCl (Zofran Tab*) 4 mg PO Q8H PRN PRN Reason: NAUSEA Paliperidone (Invega Tab*) 6 mg PO BEDTIME [facility] - Discharge Plan Discharge Plan: Inpatient Hospitalization
[2016-11-29] MEDS: Paliperidone TAB* 6 MG PO SCH (21:50)
[2016-11-30] MEDS: Lithium Carbonate ER* 450 MG TAB.ER PO SCH ×2 (09:45→21:29)
[2016-11-30] MEDS: Cephalexin CAP* 500 MG PO SCH ×2 (10:41→21:30)
--- NOTE | 2016-11-30 11:15 | PN ---
Subjective - Subjective Service Type: 62736 Hosp care 15 min low complexity Subjective: The patient remains fixated on discharge. She would not sleep in her own room last night and only got 3 hours reported sleep on a couch in the day area. Patient did take a shower yesterday, which was the first since admission, and is notably no longer malodorous. She does sign ROIs for her parents and they are updated on her progress. She remains manic with elevated thought rate, delusions and irritability. Objective - Appearance Appearance: Well Developed/Nourished Dysmorphic Features: No Hygiene: Normal Grooming: Well Kept - Behavior Psychomotor Activities: Abnormal-Increased Exhibits Abnormal Movement: No - Attitude and Relatedness Attitude and Relatedness: Superficially Cooperative Eye Contact: Good - Speech Quality: Pressured Latencies: Short Quantity: Copious - Mood Patient's Decription of Mood: "Fine" - Affect Observed Affect: Labile Affect Consistent with: Dysphoria - Thought Process Patient's Thought Process: Tangential Thought Content: Yes Paranoid Ideation, No Passive Wish, No Suicidal Planning, No Homicidal Ideation - Sensorium Experiencing Hallucinations: No, Sensorium is Clear Type of Hallucinations: Visual: No, Auditory: No, Command: No - Level of Consciousness Level of Consciousness: Alert Orientation: Yes Intact, Yes Orientated to Time, Yes Orientated to Place, Yes Orientated to Person - Impulse Control Impulse Control: Poor - Insight and Judgement Insight and Judgement: Impaired - Group Participation Particating in Group Activities: No - Medication Management Medication Management Adherence: Yes Assessment - Assessment Merits Inpatient Hospitalization: For Immediate Safety, For Stabilization Inpatient DSM-IV Dx: Bipolar I, MRE mixed, severe with psychotic features Clinical Impression: 21 y.o. single, white female with a history of mood instability, alcohol abuse and possible sociopathy admitted on a 9.41 status due to paranoid agitation and persecutory delusions directed at the local police department. Plan - Plan Treatment Plan: Name: LIDIA GARCIA Birthdate: 1995 [id number] Pt. now on court-ordered treatment but remains manic and paranoid. Will have initiated paliperidone 6mg PO qhs in preparation for starting Invega Sustenna. Will recheck Li+ level on Tuesday (12/01). Continued Medication Management: Start Medication Medications: Current Medications Cephalexin HCl (Keflex Cap*) 500 mg PO BID [facility] Last Admin: 11/30/16 10:41 Dose: Not Given Chlorpromazine HCl (Thorazine Tab*) 100 mg PO Q2H PRN PRN Reason: AGITATION Last Admin: 11/23/16 15:23 Dose: 100 mg Chlorpromazine HCl (Thorazine Inj*) 100 mg IM BID PRN PRN Reason: AGITATION [place] Carbonate ([place] Carbonate Er Tab*) 450 mg PO BID [facility] Last Admin: 11/30/16 09:45 Dose: 450 mg Ondansetron HCl (Zofran Tab*) 4 mg PO Q8H PRN PRN Reason: NAUSEA Paliperidone (Invega Tab*) 6 mg PO BEDTIME [facility] Last Admin: 11/29/16 21:50 Dose: 6 mg - Discharge Plan Discharge Plan: Inpatient Hospitalization
[2016-11-30] MEDS: Paliperidone TAB* 6 MG PO SCH (21:29)
[2016-12-01] MEDS: Cephalexin CAP* 500 MG PO SCH ×2 (08:08→20:18)
[2016-12-01] MEDS: Lithium Carbonate ER* 450 MG TAB.ER PO SCH ×2 (08:09→20:17)
[2016-12-01] MEDS ORDERED: Paliperidone SUSTENNA* 234 MG/1.5 ML IM ONE (13:54)
--- NOTE | 2016-12-01 14:08 | PN ---
Subjective - Subjective Service Type: 98539 Hosp care 15 min low complexity Subjective: Patient still somewhat pressured, fixated on discharge. She is eating sparsely of late and staff feels she might be mimicking a peer on the unit with similar tendencies. She did sign an CURTIS to contact her parents but restricted this for only 2 days. She does complain of some sedation from the medicine but no other untoward effects. Objective - Appearance Appearance: Well Developed/Nourished Dysmorphic Features: No Hygiene: Normal Grooming: Well Kept - Behavior Psychomotor Activities: Abnormal-Increased Exhibits Abnormal Movement: No - Attitude and Relatedness Attitude and Relatedness: Superficially Cooperative Eye Contact: Good - Speech Quality: Pressured Latencies: Short Quantity: Copious - Mood Patient's Decription of Mood: "Fine" - Affect Observed Affect: Expansive Affect Consistent with: Dysphoria - Thought Process Patient's Thought Process: Tangential Thought Content: Yes Paranoid Ideation, No Passive Wish, No Suicidal Planning, No Homicidal Ideation - Sensorium Experiencing Hallucinations: No, Sensorium is Clear Type of Hallucinations: Visual: No, Auditory: No, Command: No - Level of Consciousness Level of Consciousness: Alert Orientation: Yes Intact, Yes Orientated to Time, Yes Orientated to Place, Yes Orientated to Person - Impulse Control Impulse Control: Poor - Insight and Judgement Insight and Judgement: Impaired - Group Participation Particating in Group Activities: Yes - Medication Management Medication Management Adherence: Yes Assessment - Assessment Merits Inpatient Hospitalization: For Immediate Safety, For Stabilization Inpatient DSM-IV Dx: Bipolar I, MRE mixed, severe with psychotic features Clinical Impression: 21 y.o. single, white female with a history of mood instability, alcohol abuse and possible sociopathy admitted on a 9.41 status due to paranoid agitation and persecutory delusions directed at the local police department. Plan - Plan Treatment Plan: Name: LIDIA GARCIA Birthdate: 1995 [id number] Pt. now on court-ordered treatment but remains manic and paranoid. We will initiate paliperidone Sustenna today at a loading dose of 234mg IM times one. Her nightly oral paliperidone can be decreased from 6 to 3mg. We'll check a lithium level in the AM and titrate this accordingly. SW is working on setting up a family meeting with her parents to provide psychoeducation and rally social support. Continued Medication Management: Start Medication Medications: Current Medications Cephalexin HCl (Keflex Cap*) 500 mg PO BID [facility] Last Admin: 12/01/16 08:08 Dose: Not Given Chlorpromazine HCl (Thorazine Tab*) 100 mg PO Q2H PRN PRN Reason: AGITATION Last Admin: 11/23/16 15:23 Dose: 100 mg Chlorpromazine HCl (Thorazine Inj*) 100 mg IM BID PRN PRN Reason: AGITATION [place] Carbonate ([place] Carbonate Er Tab*) 450 mg PO BID [facility] Last Admin: 12/01/16 08:09 Dose: 450 mg Ondansetron HCl (Zofran Tab*) 4 mg PO Q8H PRN PRN Reason: NAUSEA - Discharge Plan Discharge Plan: Inpatient Hospitalization
[2016-12-01] MEDS: Paliperidone TAB* 3 MG TAB PO SCH (20:17)
[2016-12-02] MEDS ORDERED: Paliperidone SUSTENNA* 234 MG/1.5 ML IM ONE ×2 (09:00→10:39)
[2016-12-02] MEDS: Lithium Carbonate ER* 450 MG TAB.ER PO SCH ×2 (09:07→20:36)
[2016-12-02] MEDS: Cephalexin CAP* 500 MG PO SCH ×2 (09:58→20:51)
--- NOTE | 2016-12-02 10:46 | PN ---
Subjective - Subjective Service Type: 90146 Hosp care 15 min low complexity Subjective: The patient continues to be fixated on discharge. She is cooperative and agreeable with meeting me and does seem much less paranoid than prior to initiating medications. She does show lack of insight and asks me if she can refuse the Invega shot we have ordered. Objective - Appearance Appearance: Well Developed/Nourished Dysmorphic Features: No Hygiene: Normal Grooming: Well Kept - Behavior Psychomotor Activities: Normal Exhibits Abnormal Movement: No - Attitude and Relatedness Attitude and Relatedness: Superficially Cooperative Eye Contact: Poor - Speech Quality: Pressured Latencies: Normal Quantity: Appropriate - Mood Patient's Decription of Mood: "Okay" - Affect Observed Affect: Expansive Affect Consistent with: Dysphoria - Thought Process Patient's Thought Process: Tangential Thought Content: Yes Paranoid Ideation, No Passive Wish, No Suicidal Planning, No Homicidal Ideation - Sensorium Experiencing Hallucinations: No, Sensorium is Clear Type of Hallucinations: Visual: No, Auditory: No, Command: No - Level of Consciousness Level of Consciousness: Alert Orientation: Yes Intact, Yes Orientated to Time, Yes Orientated to Place, Yes Orientated to Person - Impulse Control Impulse Control: Poor - Insight and Judgement Insight and Judgement: Impaired - Group Participation Particating in Group Activities: Yes - Medication Management Medication Management Adherence: Yes Assessment - Assessment Merits Inpatient Hospitalization: For Stabilization, Consolidate Improvements, For Discharge Planning Inpatient DSM-IV Dx: Bipolar I, MRE mixed, severe with psychotic features Clinical Impression: 21 y.o. single, white female with a history of mood instability, alcohol abuse and possible sociopathy admitted on a 9.41 status due to paranoid agitation and persecutory delusions directed at the local police department. Plan - Plan Treatment Plan: Name: LIDIA GARCIA Birthdate: 1995 [id number] Pt. now on court-ordered treatment but remains manic and paranoid. We will initiate paliperidone Sustenna today at a loading dose of 234mg IM times one. Her nightly oral paliperidone is now 3mg. We'll check a lithium level in the AM and titrate this accordingly. SW is working on setting up a family meeting with her parents to provide psychoeducation and rally social support. Continued Medication Management: Start Medication Medications: Current Medications Cephalexin HCl (Keflex Cap*) 500 mg PO BID [facility] Last Admin: 12/02/16 09:58 Dose: Not Given Chlorpromazine HCl (Thorazine Tab*) 100 mg PO Q2H PRN PRN Reason: AGITATION Last Admin: 11/23/16 15:23 Dose: 100 mg Chlorpromazine HCl (Thorazine Inj*) 100 mg IM BID PRN PRN Reason: AGITATION [place] Carbonate ([place] Carbonate Er Tab*) 450 mg PO BID [facility] Last Admin: 12/02/16 09:07 Dose: 450 mg Ondansetron HCl (Zofran Tab*) 4 mg PO Q8H PRN PRN Reason: NAUSEA Paliperidone (Invega Tab*) 3 mg PO BEDTIME [facility] Last Admin: 12/01/16 20:17 Dose: 3 mg Paliperidone Palmitate (Invega Sustenna*) 234 mg IM ONCE ONE Stop: 12/02/16 10:40 - Discharge Plan Discharge Plan: Inpatient Hospitalization
--- NOTE | 2016-12-02 11:55 | PN ---
[facility]: Group Therapy Note - Service Type Service Type: [id number] Group Psychotherapy - Cognitive Behavioral Group Therapy ( CBT):Patient was attentive and participatory in CBT programming this morning, and remained in good behavioral control. Patient expressed positive insights regarding relevant treatment interventions and goals.
[2016-12-02] MEDS: Paliperidone TAB* 3 MG TAB PO SCH (20:37)
[2016-12-03 08:17] LABS: HDL Cholesterol 30.4 mg/dL
[2016-12-03 08:18] LABS: Lithium 0.72 mmol/L (0.6-1.2)
[2016-12-03] MEDS: Lithium Carbonate ER* 450 MG TAB.ER PO SCH ×2 (09:20→21:25)
[2016-12-03] MEDS: Cephalexin CAP* 500 MG PO SCH (09:20)
--- NOTE | 2016-12-03 12:27 | PN ---
Subjective - Subjective Service Type: 40845 Hosp care 25 min moderate complexity Subjective: The patient sits down with MICHELLE Fossca Didier and myself for a discussion about her illness and plans for after discharge. She appears resistant to involving her parents with discharge planning, stating "It's my illness and I think it's best if it's just something that I take care of on my own." Some mild elements of paranoia appear present, although they are muted and she is mostly reasonable with us. The patient denies untoward effects of the Invega shot she received yesterday. Objective - Appearance Appearance: Well Developed/Nourished Dysmorphic Features: No Hygiene: Normal Grooming: Well Kept - Behavior Psychomotor Activities: Normal Exhibits Abnormal Movement: No - Attitude and Relatedness Attitude and Relatedness: Cooperative Eye Contact: Fair - Speech Quality: Unpressured Latencies: Normal Quantity: Appropriate - Mood Patient's Decription of Mood: "Okay" - Affect Observed Affect: Unvariable Affect Consistent with: Euthymia - Thought Process Patient's Thought Process: Coherent Thought Content: Yes Paranoid Ideation, No Passive Wish, No Suicidal Planning, No Homicidal Ideation - Sensorium Experiencing Hallucinations: No, Sensorium is Clear Type of Hallucinations: Visual: No, Auditory: No, Command: No - Level of Consciousness Level of Consciousness: Alert Orientation: Yes Intact, Yes Orientated to Time, Yes Orientated to Place, Yes Orientated to Person - Impulse Control Impulse Control: Tenuous - Insight and Judgement Insight and Judgement: Poor - Group Participation Particating in Group Activities: Yes - Medication Management Medication Management Adherence: Yes Assessment - Assessment Merits Inpatient Hospitalization: Consolidate Improvements, For Discharge Planning Inpatient DSM-IV Dx: Bipolar I, MRE mixed, severe with psychotic features Clinical Impression: 21 y.o. single, white female with a history of mood instability, alcohol abuse and possible sociopathy admitted on a 9.41 status due to paranoid agitation and persecutory delusions directed at the local police department. Plan - Plan Treatment Plan: Name: LIDIA GARCIA Birthdate: 1995 [id number] The patient appears to be improving on court-mandated treatment. We have initiated paliperidone Sustenna yesterday at a loading dose of 234mg IM times one. Her nightly oral paliperidone is now 3mg. He lithium level is therapeutic at 0.72. SW is working on setting up a family meeting with her parents to provide psychoeducation and rally social support. Will target mid- next week for d/c. Continued Medication Management: Start Medication Medications: Current Medications Chlorpromazine HCl (Thorazine Tab*) 100 mg PO Q2H PRN PRN Reason: AGITATION Last Admin: 11/23/16 15:23 Dose: 100 mg Chlorpromazine HCl (Thorazine Inj*) 100 mg IM BID PRN PRN Reason: AGITATION [employer] Carbonate ([employer] Carbonate Er Tab*) 450 mg PO BID [facility] Last Admin: 12/03/16 09:20 Dose: 450 mg Paliperidone (Invega Tab*) 3 mg PO BEDTIME [facility] Last Admin: 12/02/16 20:37 Dose: 3 mg - Discharge Plan Discharge Plan: Inpatient Hospitalization Lab Results - Lab Results Lab Results: 12/03/16 07:32 Triglycerides 67 Cholesterol 125 LDL Cholesterol 81 HDL Cholesterol 30.4 [employer] 0.72
[2016-12-03] MEDS: Paliperidone TAB* 3 MG TAB PO SCH (21:25)
[2016-12-04] MEDS: Lithium Carbonate ER* 450 MG TAB.ER PO SCH ×2 (09:45→21:30)
[2016-12-04] MEDS: Paliperidone TAB* 3 MG TAB PO SCH (21:30)
[2016-12-05] MEDS: Lithium Carbonate ER* 450 MG TAB.ER PO SCH ×2 (08:37→21:58)
[2016-12-05] MEDS: Paliperidone TAB* 3 MG TAB PO SCH (21:58)
--- NOTE | 2016-12-06 07:45 | PN ---
Subjective - Subjective Service Type: 67050 Hosp care 15 min low complexity Subjective: Lidia had no spontaneous comments. She denied difficulties or distress, or side effects with medications. She reported getting along fine with peers. She had no questions or concerns, and made no delusional comments. Objective - Appearance Appearance: Healthy Appearing Hygiene: Normal Grooming: Well Kept - Behavior Psychomotor Activities: Normal - Attitude and Relatedness Attitude and Relatedness: Cooperative Eye Contact: Good - Speech Quality: Unpressured Latencies: Normal Quantity: Terse - Mood Patient's Decription of Mood: "Okay" - Affect Observed Affect: Non-labile Affect Consistent with: Dysphoria - mild - Thought Process Patient's Thought Process: Impoverished Thought Content: No Passive Wish, No Suicidal Planning, No Homicidal Ideation, No Paranoid Ideation - Sensorium Experiencing Hallucinations: No, Sensorium is Clear - Level of Consciousness Level of Consciousness: Alert - Impulse Control Impulse Control: Intact - Insight and Judgement Insight and Judgement: Fair Assessment - Assessment Merits Inpatient Hospitalization: To Initiate Treatment, For Ongoing Evaluation , Consolidate Improvements, For Discharge Planning Inpatient DSM-IV Dx: Bipolar I, MRE mixed, severe with psychotic features Clinical Impression: Second psychiatric hospitalization for a 21-year-old female with a history of behavioral disturbance with alcohol problems, who presented with a clear history of one month of psychosis with extensive delusions. She is newly diagnosed with bipolar disorder. Stabilizing here. Is much less symptomatic, calmer, with absence of spontaneous persecutory ideation (ideation is more subtle), reduced pressure, less intrusiveness, overall much milder manic features. Medmgt. is with [place] (level 0.72) - nonadherence was a complication and the hospital obtained a court order for medication over objection. Plan - Plan Treatment Plan: Name: LIDIA GARCIA Birthdate: 1995 [id number] Continued Medication Management: Start Medication Medications: Current Medications Chlorpromazine HCl (Thorazine Tab*) 100 mg PO Q2H PRN PRN Reason: AGITATION Last Admin: 11/23/16 15:23 Dose: 100 mg Chlorpromazine HCl (Thorazine Inj*) 100 mg IM BID PRN PRN Reason: AGITATION [employer] Carbonate ([employer] Carbonate Er Tab*) 450 mg PO BID [facility] Last Admin: 12/05/16 21:58 Dose: 450 mg Paliperidone (Invega Tab*) 3 mg PO BEDTIME [facility] Last Admin: 12/05/16 21:58 Dose: 3 mg - Discharge Plan Discharge Plan: Outpatient Follow Up
[2016-12-06] MEDS: Lithium Carbonate ER* 450 MG TAB.ER PO SCH ×2 (08:46→21:15)
--- NOTE | 2016-12-06 11:14 | PN ---
MHU: Group Therapy Note - Service Type Service Type: 24221 Group Psychotherapy - Cognitive Behavioral Group Therapy ( CBT):Patient attended CBT programming this morning and presented with flat affect that did not vary with discussion. Although responsive to direct prompts to respond to questions, patient did not engage in spontaneous conversation.
[2016-12-06] MEDS: Paliperidone TAB* 3 MG TAB PO SCH (21:15)
[2016-12-07 08:43] VITALS: BP 109/72
[2016-12-07] MEDS: Lithium Carbonate ER* 450 MG TAB.ER PO SCH (09:58)
[2016-12-07] MEDS ORDERED: Paliperidone SUSTENNA* 156 MG/1 ML IM ONE (11:00)
--- NOTE | 2016-12-07 11:26 | PN ---
MHU: Group Therapy Note - Service Type Service Type: 73096 Group Psychotherapy - Cognitive Behavioral Group Therapy ( CBT):Patient was attentive and participatory in CBT programming this morning, and remained in good behavioral control. Patient expressed positive insights regarding relevant treatment interventions and goals.
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
== END 2016-12-07 12:30 | disposition home or self-care (01) | DRG 753 ==
LOC: ED 20:30 → BSU 23:25
PROVIDERS: ADMIT Psychiatry & Neurology Psychiatry; ATTEND Psychiatry & Neurology Psychiatry
DX: F31.5 Bipolar disorder, current episode depressed, severe, with psychotic features (principal); N39.0 Urinary tract infection, site not specified; F10.10 Alcohol abuse, uncomplicated
CPT/HCPCS: 36415; 71010; 80053; 80061; 80178; 80301; 80320; 80329; 81003; 81015; 83036; 84443; 85025; 87077; 87086; 87186; 90853; 99222; 99231; 99232; 99238; A9270-GY; G0479; G0480; J1200; J2060; J2426